=== PATIENT | female | born 1955 | race Caucasian/White ===

== ENCOUNTER 2019-02-03 09:04 | Outpatient (REF) | payer OTHER, SELFPAY ==
[2019-02-03 21:59] LABS: Hemoglobin A1C 6.6 % (4.5-6.2)
[2019-02-03 23:04] LABS: ALT 33 U/L (12-78); AST 24 U/L (15-37); Albumin 3.5 g/dL (3.4-5.0); Alkaline Phosphatase 135 U/L (46-116); Anion Gap 11.1 mmol/L (3-11); BUN 20 mg/dL (7-18); Bilirubin, Total 0.4 mg/dL (0.2-1.0); CO2 26.9 mmol/L (21.0-32.0); CREATININE 0.91 mg/dL (0.55-1.02); Calcium 8.5 mg/dL (8.5-10.1); Chloride 106 mmol/L (98-107); Cholesterol 179 mg/dL (50-200); Glucose 89 mg/dL (70-100); HDL Cholesterol 52 mg/dL (40-60); LDL CHOLESTEROL 102 mg/dL (<100); Potassium 4.8 mmol/L (3.5-5.1); Sodium 144 mmol/L (136-145); Total Protein 7.1 g/dL (6.4-8.2); Triglyceride 98 mg/dL (30-150); Vitamin B12 293 pg/mL (193-986)
== END 2019-02-03 09:24 ==
LOC: NCHCN 09:04
PROVIDERS: PCP Nurse Practitioner Family; Visit Provider Nurse Practitioner Family
DX: E78.5 Hyperlipidemia, unspecified (principal); R73.09 Other abnormal glucose; K21.9 Gastro-esophageal reflux disease without esophagitis; F41.8 Other specified anxiety disorders
CPT/HCPCS: 80053; 80061; 83721; 82607; 83036; 83735

== ENCOUNTER 2019-08-05 11:18 | Outpatient (REF) | payer MEDICARE, OTHER, SELFPAY ==
[2019-08-05 21:59] LABS: HCT 39.5 % (36.0-46.0); HGB 12.4 g/dL (12.0-15.5); Mean Corp. HGB Concentration 31.4 g/dL (32.0-36.0); Mean Corpuscular Hemoglobin 28.5 pg (27.0-33.0); Mean Corpuscular Volume 90.8 fL (80-95); Mean Platelet Volume 11.1 fL (8.0-11.0); Platelet Count 362 x1000/uL (130-400); RBC 4.35 m/cumm (4.00-5.20); RBC Distribution Width 14.3 % (11.7-14.6); White Blood Cell Count 7.84 k/cumm (4.4-10.8)
[2019-08-05 22:09] LABS: COMMENT (LAB VIEW ONLY) 279.08 mg/dL; Microalb ug/mg Crea 4.4 ug/mg Cr
[2019-08-05 22:11] LABS: TSH 2.04 uIU/mL (0.36-3.74)
== END 2019-08-05 11:38 ==
LOC: NCHCN 11:18
PROVIDERS: PCP Nurse Practitioner Family; Visit Provider Nurse Practitioner Family
DX: E11.9 Type 2 diabetes mellitus without complications (principal); E78.5 Hyperlipidemia, unspecified; K21.9 Gastro-esophageal reflux disease without esophagitis; R53.83 Other fatigue
CPT/HCPCS: 85027; 82043; 82570; 84443

== ENCOUNTER 2020-05-17 09:54 | Outpatient (REF) | payer MEDICARE, OTHER, SELFPAY ==
[2020-05-17 21:50] LABS: ALT 19 U/L (14-59); AST 14 U/L (15-37); Albumin 3.4 g/dL (3.4-5.0); Alkaline Phosphatase 135 U/L (46-116); Anion Gap 9.1 mmol/L (3-11); BUN 11 mg/dL (7-18); Bilirubin, Total 0.5 mg/dL (0.2-1.0); CO2 26.9 mmol/L (21.0-32.0); CREATININE 0.87 mg/dL (0.55-1.02); Calcium 8.4 mg/dL (8.5-10.1); Calculated LDL 86 mg/dL (<100); Chloride 108 mmol/L (98-107); Cholesterol 154 mg/dL (<200); Glucose 99 mg/dL (74-106); HDL Cholesterol 46 mg/dL (40-60); Potassium 3.9 mmol/L (3.5-5.1); Sodium 144 mmol/L (136-145); Total Protein 6.7 g/dL (6.4-8.2); Triglyceride 113 mg/dL (<150)
== END 2020-05-17 10:14 ==
LOC: NCHCN 09:54
PROVIDERS: PCP Nurse Practitioner Family; Visit Provider Nurse Practitioner Family
DX: E78.5 Hyperlipidemia, unspecified (principal); E11.9 Type 2 diabetes mellitus without complications; F41.8 Other specified anxiety disorders; K21.9 Gastro-esophageal reflux disease without esophagitis
CPT/HCPCS: 80053; 80061

== ENCOUNTER 2020-11-15 17:42 | Outpatient (REF) | payer MEDICARE, OTHER, SELFPAY ==
[2020-11-15 13:36] LABS: Hemoglobin A1C 6.7 % (<5.7)
[2020-11-15 13:39] LABS: ALT 19 U/L (14-59); AST 15 U/L (15-37); Albumin 3.3 g/dL (3.4-5.0); Alkaline Phosphatase 128 U/L (46-116); Anion Gap 6.3 mmol/L (3-11); BUN 12 mg/dL (7-18); Bilirubin, Total 0.5 mg/dL (0.2-1.0); CO2 27.7 mmol/L (21.0-32.0); Calcium 8.3 mg/dL (8.5-10.1); Calculated LDL 108 mg/dL (<100); Chloride 106 mmol/L (98-107); Cholesterol 190 mg/dL (<200); Estimated GFR 55.47 (mL/min/1.73m2); Glucose 93 mg/dL (74-106); HDL Cholesterol 53 mg/dL (40-60); Potassium 3.9 mmol/L (3.5-5.1); Sodium 140 mmol/L (136-145); Total Protein 6.9 g/dL (6.4-8.2); Triglyceride 149 mg/dL (<150)
[2020-11-15 13:52] LABS: Vitamin D 25 Total 34.3 ng/ml (30-100)
[2020-11-15 13:53] LABS: PHOSPHORUS 3.1 mg/dL (2.6-4.7)
[2020-11-15 14:05] LABS: Microalb ug/mg Crea 2.4 ug/mg Cr
[2020-11-16 09:58] LABS: Parathyroid Hormone,Intact 93 pg/mL (19-88)
== END 2020-11-15 17:43 | disposition home or self-care (01) ==
LOC: NCHCN 17:42
PROVIDERS: PCP Nurse Practitioner Family; Visit Provider Nurse Practitioner Family
DX: E11.9 Type 2 diabetes mellitus without complications (principal); E55.9 Vitamin D deficiency, unspecified
CPT/HCPCS: 80053; 80061; 82306; 82043; 82570; 83036; 83970; 84100

== ENCOUNTER 2021-05-12 11:26 | Outpatient (REF) | payer MEDICARE, OTHER, SELFPAY ==
[2021-05-12 20:59] LABS: Abs Immature Grans 0.02 10^3/uL (0.0-0.06); Absolute Basophil Count 0.04 10^3/uL (0.0-0.2); Absolute Eosinophil Count 0.12 10^3/uL (0.0-0.7); Absolute Lymphocyte Count 1.88 10^3/uL (1.2-3.4); Absolute Monocyte Count 0.64 10^3/uL (0.1-0.8); Absolute Neutrophil Count 5.65 10^3/uL (1.2-6.7); Basophils % 0.5; Eosinophils % 1.4; HCT 38.8 % (36.0-46.0); HGB 12.2 g/dL (11.2-15.7); Immature Grans % 0.2; Lymphocytes % 22.5; MCH 28.2 pg (27.0-33.0); MCHC 31.4 % (32.0-36.0); MCV 89.8 fL (80-95); MPV 11.7 fL (8.0-11.0); Monocytes % 7.7; Neutrophils % 67.7; Nucleated RBC 0 %; Platelet Count 307 10^3/uL (130-400); RBC 4.32 10^6/uL (3.93-5.22); RDW-SD 46.5 fL; WBC 8.35 10^3/uL (4.4-10.8)
[2021-05-12 21:06] LABS: ALT 20 U/L (14-59); AST 19 U/L (15-37); Albumin 3.6 g/dL (3.4-5.0); Alkaline Phosphatase 119 U/L (46-116); Anion Gap 11.2 mmol/L (3-11); BUN 13 mg/dL (7-18); Bilirubin, Total 0.4 mg/dL (0.2-1.0); CO2 25.8 mmol/L (21.0-32.0); CREATININE 1.1 mg/dL (0.55-1.02); Calcium 9.1 mg/dL (8.5-10.1); Calculated LDL 109 mg/dL (<100); Chloride 105 mmol/L (98-107); Cholesterol 190 mg/dL (<200); Estimated GFR 49.54 (mL/min/1.73m2); Glucose 111 mg/dL (74-106); HDL Cholesterol 50 mg/dL (40-60); Potassium 4.3 mmol/L (3.5-5.1); Sodium 142 mmol/L (136-145); TSH 1.61 uIU/mL (0.36-3.74); Total Protein 7.1 g/dL (6.4-8.2); Triglyceride 156 mg/dL (<150)
[2021-05-12 21:19] LABS: Vitamin D 25 Total 43.4 ng/mL (30-100)
[2021-05-13 09:39] LABS: Parathyroid Hormone,Intact 59 pg/mL (19-88)
[2021-05-16 15:07] LABS: IgA 265 mg/dL (85-499); Interpretation (See Note); Tissue Transglutaminase IgA <1.2 U/mL (<4.0)
== END 2021-05-12 11:27 | disposition home or self-care (01) ==
LOC: NCHCN 11:26
PROVIDERS: PCP Nurse Practitioner Family; Visit Provider Nurse Practitioner Family
DX: E11.9 Type 2 diabetes mellitus without complications (principal); E78.5 Hyperlipidemia, unspecified; R74.8 Abnormal levels of other serum enzymes; R19.7 Diarrhea, unspecified; E73.9 Lactose intolerance, unspecified
CPT/HCPCS: 80053; 80061; 82306; 82784; 83516; 83970; 84443; 85025

== ENCOUNTER 2021-05-17 22:28 | Outpatient (REF) | payer MEDICARE, OTHER, SELFPAY ==
[2021-05-17 22:32] LABS: C Diff PCR Negative (Negative)
[2021-05-18 21:10] LABS: Campylobacter PCR Negative (Negative); Salmonella PCR Negative (Negative); Shiga Toxin PCR Negative (Negative); Shigella/Enteroinvasive Ecoli Negative (Negative)
== END 2021-05-17 22:29 | disposition home or self-care (01) ==
LOC: NCHCN 22:28
PROVIDERS: PCP Nurse Practitioner Family; Visit Provider Nurse Practitioner Family
DX: E11.9 Type 2 diabetes mellitus without complications (principal); E78.5 Hyperlipidemia, unspecified; R74.8 Abnormal levels of other serum enzymes; R19.7 Diarrhea, unspecified; E73.9 Lactose intolerance, unspecified
CPT/HCPCS: 87329; 87493; 87505; 83630; 87177

== ENCOUNTER 2021-08-25 08:52 | Outpatient (REF) | payer MEDICARE, OTHER, SELFPAY ==
[2021-08-25 15:10] LABS: ALT 23 U/L (14-59); AST 16 U/L (15-37); Albumin 3.5 g/dL (3.4-5.0); Alkaline Phosphatase 107 U/L (46-116); Anion Gap 8.4 mmol/L (3-11); BUN 21 mg/dL (7-18); Bilirubin, Total 0.5 mg/dL (0.2-1.0); CO2 28.6 mmol/L (21.0-32.0); CREATININE 1.1 mg/dL (0.55-1.02); Calcium 8.7 mg/dL (8.5-10.1); Chloride 106 mmol/L (98-107); Estimated GFR 49.54 (mL/min/1.73m2); Glucose 100 mg/dL (74-106); Potassium 4.5 mmol/L (3.5-5.1); Sodium 143 mmol/L (136-145)
[2021-08-25 15:30] LABS: Hemoglobin A1C 6.4 % (<5.7)
== END 2021-08-25 08:53 | disposition home or self-care (01) ==
LOC: NCHCN 08:52
PROVIDERS: PCP Nurse Practitioner Family; Visit Provider Nurse Practitioner Family
DX: E11.9 Type 2 diabetes mellitus without complications (principal); N18.31 Chronic kidney disease, stage 3a
CPT/HCPCS: 80053; 83036

== ENCOUNTER 2022-02-21 19:41 | Outpatient (REF) | payer MEDICARE, OTHER, SELFPAY ==
--- OUTSIDE RECORDS SUMMARY | 2022-02-21 19:44 | XMS_ITS | CCD ---
:1955 Author Care Team Providers Name Role Phone JIAN SOLITARIO Attending Physician Unavailable Vital Signs Unknown or Not Available. Allergies Allergy Code Allergy Type Reaction Status PENICILLINS (CLASS) 69837 Drug allergy Hives Active MEPERIDINE 6754 Drug allergy Active MORPHINE 7052 Drug allergy Vomiting, Nausea Active ERYTHROMYCIN 4053 Drug allergy Active AMOXICILLIN 723 Drug allergy Active AZITHROMYCIN 21322 Drug allergy Vomiting, Nausea Active LATEX 0 Allergy to substance Active Procedures Unknown or Not Available. History of Immunizations Unknown or Not Available. Problems Unknown or Not Available. Results Unknown or Not Available. Active Medications Unknown or Not Available. Medications Administered During Visit Unknown or Not Available. Encounters Unknown or Not Available. Social History Smoking Status Code Start Date End Date Never smoker [id number] Patient Decision Aids Unknown or Not Available. Discharge Instructions You were admitted to [facility] on 11/29/2021 11:27 You were discharged from [facility] on 11/29/2021 11:28 Should you have any questions prior to d ischarge, please contact a member of your healthcare team. If you have left the spital and have any questions, please contact your primary care physician. Chief Complaint and Reason For Visit Unknown or Not Available. Function Status Unknown or Not Available. Plan of Care Unknown or Not Available. Referral/Transition of Care Unknown or Not Available.
--- OUTSIDE RECORDS SUMMARY | 2022-02-21 19:44 | XMS_ITS | CCD ---
:1955 Author Care Team Providers Name Role Phone JIAN SOLITARIO Attending Physician Unavailable Vital Signs Unknown or Not Available. Allergies Allergy Code Allergy Type Reaction Status PENICILLINS (CLASS) 54741 Drug allergy Hives Active MEPERIDINE 6754 Drug allergy Active MORPHINE 7052 Drug allergy Vomiting, Nausea Active ERYTHROMYCIN 4053 Drug allergy Active AMOXICILLIN 723 Drug allergy Active AZITHROMYCIN 05346 Drug allergy Vomiting, Nausea Active LATEX 0 Allergy to substance Active Procedures Unknown or Not Available. History of Immunizations Unknown or Not Available. Problems Unknown or Not Available. Results [facility] COVID RHEONIX* - Collect Date/Eros e: 11/26/2021 09:44 Test Name Code Test Result Test Units Test Ref Range Tier- 39055-5 PRE-OP N/A SARS COV2 RNA: 97427-3 NEGATIVE N/A REFERENCE RAN GE: NEGAT Active Medications Unknown or Not Available. Medications Administered During Visit Unknown or Not Available. Encounters Encounter Diagnosis Diagnosis Code Start Date Pre-surgery testing [id number] 11/26/2021 Social History Smoking Status Code Start Date End Date Never smoker [id number] Patient Decision Aids Unknown or Not Available. Discharge Instructions You were admitted to [facility] on 11/26/2021 19:33 with a principal diagnosis of Encounter for preprocedural laborator y examination You had the following tests done: [facility] COVID RHEONIX* You were discharged from [facility] on 11/26/2021 19:33 Should you have any questions prior to d ischarge, please contact a member of your healthcare team. If you have left the ho spital and have any questions, please contact your primary care physician. Chief Complaint and Reason For Visit Unknown or Not Available. Function Status Unknown or Not Available. Plan of Care Unknown or Not Available. Referral/Transition of Care Unknown or Not Available.
[2022-02-21 21:52] LABS: COMMENT (LAB VIEW ONLY) 42.02 mg/dL; Microalb ug/mg Crea 3.1 ug/mg Cr
== END 2022-02-21 19:42 | disposition home or self-care (01) ==
LOC: NCHCN 19:41
PROVIDERS: PCP Nurse Practitioner Family; Visit Provider Nurse Practitioner Family
DX: E11.9 Type 2 diabetes mellitus without complications (principal)
CPT/HCPCS: 82043; 82570

== ENCOUNTER 2022-08-15 13:49 | Outpatient (REF) | payer MEDICARE, OTHER, SELFPAY ==
[2022-08-15 21:29] LABS: ALT 23 U/L (14-59); AST 22 U/L (15-37); Albumin 3.6 g/dL (3.4-5.0); Alkaline Phosphatase 105 U/L (46-116); Anion Gap 5.1 mmol/L (3-11); BUN 17 mg/dL (7-18); Bilirubin, Total 0.5 mg/dL (0.2-1.0); CO2 30.9 mmol/L (21.0-32.0); CREATININE 1.1 mg/dL (0.55-1.02); Calcium 9.2 mg/dL (8.5-10.1); Chloride 101 mmol/L (98-107); Estimated GFR 54.73 (mL/min/1.73m2); Glucose 90 mg/dL (74-106); Sodium 137 mmol/L (136-145); Total Protein 7.8 g/dL (6.4-8.2)
[2022-08-15 22:00] LABS: Hemoglobin A1C 6.3 % (<5.7)
[2022-08-17 16:26] LABS: Hepatitis C Ab w Rflx HCV PCR Negative (Negative)
== END 2022-08-15 13:50 | disposition home or self-care (01) ==
LOC: NCHCN 13:49
PROVIDERS: PCP Nurse Practitioner Family; Visit Provider Nurse Practitioner Family
DX: E11.9 Type 2 diabetes mellitus without complications (principal); N18.31 Chronic kidney disease, stage 3a; R74.8 Abnormal levels of other serum enzymes; Z00.8 Encounter for other general examination
CPT/HCPCS: 80053; 86803; 83036

== ENCOUNTER 2023-02-19 15:02 | Outpatient (REF) | payer MEDICARE, OTHER, SELFPAY ==
[2023-02-19 22:02] LABS: COMMENT (LAB VIEW ONLY) 44.51 mg/dL
== END 2023-02-19 15:03 | disposition home or self-care (01) ==
LOC: NCHCN 15:02
PROVIDERS: PCP Nurse Practitioner Family; Visit Provider Nurse Practitioner Family
DX: E11.9 Type 2 diabetes mellitus without complications (principal)
CPT/HCPCS: 82043; 82570

== ENCOUNTER 2023-08-13 18:22 | Outpatient (REF) | payer MEDICARE, OTHER, SELFPAY ==
[2023-08-13 15:05] LABS: ALT 21 U/L (14-59); AST 19 U/L (15-37); Albumin 3.2 g/dL (3.4-5.0); Alkaline Phosphatase 109 U/L (46-116); Anion Gap 8.7 mmol/L (3-11); BUN 14 mg/dL (7-18); Bilirubin, Total 0.5 mg/dL (0.2-1.0); CO2 27.3 mmol/L (21.0-32.0); CREATININE 1.1 mg/dL (0.55-1.02); Calcium 8.8 mg/dL (8.5-10.1); Calculated LDL 95 mg/dL (<100); Chloride 103 mmol/L (98-107); Cholesterol 166 mg/dL (<200); Estimated GFR 54.39 (mL/min/1.73m2); Glucose 103 mg/dL (74-106); HDL Cholesterol 52 mg/dL (40-60); Potassium 4.1 mmol/L (3.5-5.1); Sodium 139 mmol/L (136-145); Total Protein 7.3 g/dL (6.4-8.2); Triglyceride 98 mg/dL (<150)
[2023-08-13 15:42] LABS: Hemoglobin A1C 6.6 % (<5.7)
== END 2023-08-13 18:23 | disposition home or self-care (01) ==
LOC: NCHCN 18:22
PROVIDERS: PCP Nurse Practitioner Family; Visit Provider Nurse Practitioner Family
DX: E78.5 Hyperlipidemia, unspecified (principal); E11.9 Type 2 diabetes mellitus without complications
CPT/HCPCS: 80053; 80061; 83036

== ENCOUNTER 2024-04-07 15:18 | Outpatient (REF) | payer MEDICARE, OTHER, SELFPAY ==
[2024-04-07 22:12] LABS: HCT 37.8 % (36.0-46.0); HGB 12.1 g/dL (11.2-15.7); MCH 29.1 pg (27.0-33.0); MCV 91 fL (80-95); MPV 11.4 fL (8.0-11.0); Platelet Count 294 10^3/uL (130-400); RBC 4.16 10^6/uL (3.93-5.22); RDW 13.2 % (11.7-14.6); RDW-SD 44.5 fL; WBC 8.99 10^3/uL (4.4-10.8)
[2024-04-07 22:17] LABS: ALT 22 U/L (14-59); AST 26 U/L (15-37); Albumin 3.3 g/dL (3.4-5.0); Alkaline Phosphatase 120 U/L (46-116); Anion Gap 11.3 mmol/L (3-11); BUN 15 mg/dL (7-18); Bilirubin, Total 0.55 mg/dL (0.2-1.0); CO2 26.7 mmol/L (21.0-32.0); CREATININE 1.1 mg/dL (0.55-1.02); Calcium 8.9 mg/dL (8.5-10.1); Calculated LDL 106 mg/dL (<100); Chloride 105 mmol/L (98-107); Cholesterol 191 mg/dL (<200); Estimated GFR 54.39 (mL/min/1.73m2); Glucose 97 mg/dL (74-106); HDL Cholesterol 51 mg/dL (40-60); Potassium 4.4 mmol/L (3.5-5.1); Sodium 143 mmol/L (136-145); Total Protein 7.4 g/dL (6.4-8.2); Triglyceride 170 mg/dL (<150)
[2024-04-07 22:33] LABS: Hemoglobin A1C 6.5 % (<5.7)
[2024-04-07 22:54] LABS: TSH 1.85 uIU/Ml (0.36-3.74)
== END 2024-04-07 15:19 | disposition home or self-care (01) ==
LOC: NCHCN 15:18
PROVIDERS: PCP Nurse Practitioner Family; Visit Provider Nurse Practitioner Family
DX: E78.5 Hyperlipidemia, unspecified (principal); E11.9 Type 2 diabetes mellitus without complications; E03.9 Hypothyroidism, unspecified; R74.8 Abnormal levels of other serum enzymes; K58.9 Irritable bowel syndrome, unspecified
CPT/HCPCS: 80053; 80061; 85027; 83036; 84443

== ENCOUNTER 2024-10-07 13:01 | Outpatient (REF) | payer MEDICARE, OTHER, SELFPAY ==
[2024-10-07 22:23] LABS: COMMENT (LAB VIEW ONLY) 46.55 mg/dL; Microalb ug/mg Crea 5.6 ug/mg Cr
== END 2024-10-07 13:02 | disposition home or self-care (01) ==
LOC: NCHCN 13:01
PROVIDERS: PCP Nurse Practitioner Family; Visit Provider Nurse Practitioner Family
DX: E11.9 Type 2 diabetes mellitus without complications (principal)
CPT/HCPCS: 82043; 82570

== ENCOUNTER 2025-03-30 19:24 | Outpatient (REF) | payer MEDICARE, OTHER, SELFPAY ==
[2025-03-30 16:25] LABS: Hemoglobin A1C 6.3 % (<5.7)
[2025-03-30 16:49] LABS: ALT 26 U/L (14-59); AST 20 U/L (15-37); Albumin 3.6 g/dL (3.4-5.0); Alkaline Phosphatase 88 U/L (46-116); Anion Gap 8.4 mmol/L (3-11); BUN 23 mg/dL (7-18); Bilirubin, Total 0.4 mg/dL (0.2-1.0); CO2 28.6 mmol/L (21.0-32.0); Calcium 9.0 mg/dL (8.5-10.1); Calculated LDL 96 mg/dL (<100); Chloride 104 mmol/L (98-107); Cholesterol 170 mg/dL (<200); Estimated GFR 60.61 (mL/min/1.73m2); Glucose 110 mg/dL (74-106); HDL Cholesterol 65 mg/dL (>or=50); Potassium 4.1 mmol/L (3.5-5.1); Sodium 141 mmol/L (136-145); Total Protein 7.2 g/dL (6.4-8.2); Triglyceride 48 mg/dL (<150); Vitamin D 25 Total 69 ng/mL (30-100)
== END 2025-03-30 19:25 | disposition home or self-care (01) ==
LOC: NCHCN 19:24
PROVIDERS: PCP Nurse Practitioner Family; Visit Provider Nurse Practitioner Family
DX: E11.9 Type 2 diabetes mellitus without complications (principal); E55.9 Vitamin D deficiency, unspecified
CPT/HCPCS: 80053; 80061; 82306; 83036

== ENCOUNTER 2025-07-14 10:15 | Outpatient (REF) | payer MEDICARE, OTHER, SELFPAY | END 2025-07-14 10:16 | disposition home or self-care (01) | LOC: NCHCN 10:15 | PROVIDERS: PCP Nurse Practitioner Family; Visit Provider Nurse Practitioner Family | DX: R39.9 Unspecified symptoms and signs involving the genitourinary system (principal) | CPT/HCPCS: 87077; 87086; 87186 ==

== ENCOUNTER 2025-07-31 14:12 | Outpatient (REF) | payer MEDICARE, SELFPAY | END 2025-07-31 14:13 | disposition home or self-care (01) | LOC: NCHCN 14:12 | PROVIDERS: PCP Nurse Practitioner Family; Visit Provider Family Medicine | DX: R39.9 Unspecified symptoms and signs involving the genitourinary system (principal) | CPT/HCPCS: 87077; 87086; 87186 ==